=== PATIENT | female | born 1995 | race Caucasian/White ===

== ENCOUNTER 2021-04-21 04:15 | Observation (INO) | payer OTHER, MEDICAID, SELFPAY ==
[2021-04-21] VITALS (21 sets, daily range): BP systolic 104–137; BP diastolic 56–91; PULSE 60–101; RESP 16–20; TEMP 36–36.9; O2SAT 97–100; BMI 26.6
--- NOTE | 2021-04-21 | PATH_ITS ---
[facility] Accession Number: [id number] . 01 Material submitted: . appendix - APPENDIX . 02 Diagnosis: Appendix, Appendectomy: Acute appendicitis and serositis. [facility] 04/23/2021 1031 Local . 02 Electronically signed: . Kendal Perrin MD, Pathologist NPI- [id number] . 01 Gross description: . The specimen is received in formalin, labeled appendix and consists of an 8.0 cm in length by 1.6 cm in diameter vermiform appendix with attached meyer-yellow lobulated mesoappendix measuring 6.5 x 1.5 x 1.0 cm. The serosa is meyer-pink and ragged with adherent purulent exudate. Sectioning reveals a meyer-pink mucosa and a lumen measuring 1.4 cm in diameter. Rail[employer] Assistant sections are submitted to include the en face margin (blue), central cross sections and bisected tips in cassettes A1-A3. ([id number]) /V 04/22/2021 1122 Local . 02 Pathologist provided ICD-10: K35.80 . 02 CPT . 619850 Performed at: 01 [facility] [address], [place], [place] [id number] MD Ari Downs MD Phone: [phone] Performed at: 02 [facility] [address] [place], [place] [id number] MD Tonya Kenny MD Phone: [phone]
--- NOTE | 2021-04-21 04:23 | ED_ITS ---
HPI - Abdominal Pain General Chief Complaint: Abdominal Pain Stated Complaint: bad stomach pain hurts to lay down Time Seen by Provider: 04/21/21 04:20 Source: patient Mode of arrival: Ambulatory Limitations: no limitations History of Present Illness HPI narrative: This is a 25-year-old female who comes to the emergency department with complaint of abdominal pain. Patient states her lower abdomen. It came on fairly quickly about 11:00 a.m. this evening. Patient states just been worsening over time. She has not had any fevers or chills she is aware of. No diaphoresis. No chest pain or shortness breath. She has had some nausea and had 1 episode of vomiting. She denies any diarrhea or constipation, no b lack or bloody stools and states she has had normal formed stools. No dysuria, urgency or frequency. She denies any vaginal bleeding or discharge. She denies any other medical issues. No daily medications. No prior surgeries. No allergies other than citalopram. Tobacco, occasional alcohol, no illicit. Related Data Previous Rx's Medication Instructions Recorded cephalexin 500 mg capsule (Keflex) 500 mg PO TID 7 Days #0 cap 06/22/16 ciprofloxacin HCl 0.3 % eye drops 1 drp OPHTH Q2HWA #5 ml 01/20/17 (Ciloxan) Allergies Allergy/AdvReac Type Severity Reaction Status Date / Time citalopram [From CELEXA] Allergy Intermediate Rash Verified 04/21/21 16:33 Review of Systems Review of Systems ROS Unobtainable: All systems reviewed & are unremarkable except as noted in HPI and below Patient History Social History (System 07/03/19 @ 08:34 by Della Arciniega) household members: significant other Smoking Status: Never smoker alcohol intake: current Exam Narrative Exam Narrative: GENERAL: Alert and oriented x three, female in moderate distress . HEENT: Head normocephalic, atraumatic, EOMI, pupils reactive, face symmetric, moist mucous membranes NECK: Supple, full range of motion CARDIOVASCULAR: Regular rate and rhythm without murmurs, rubs or gallops. RESPIRATORY: Breath sounds equal bilaterally, no wheezes rales or rhonchi. ABDOMEN: Soft, patient's only uncomfortable on exam but no discrete abdominal tenderness on palpation. Hyperactive bowel sounds all 4 quadrants. No guarding or rebound, rigidity, no mass. Non-distended. : No CVA tenderness bilaterally. EXTREMITIES: Normal range of motion, no clubbing or edema. Neurovascularly intact NEUROLOGICAL: Cranial nerves II through XII grossly intact. Moving all extremities SKIN: Warm, dry, no petechiae, no rashes or lesions. Initial Vital Signs Initial Vital Signs: Vital Signs Temperature 97.5 F L 04/21/21 04:25 Pulse Rate 60 04/21/21 04:25 Respiratory Rate 16 04/21/21 04:25 Blood Pressure 131/79 04/21/21 04:25 Pulse Oximetry 100 04/21/21 04:25 Course Orders Ordered: Acetaminophen (Acetaminophen 325 Mg Tablet) 650 mg PO Q6HR PRN PRN Reason: Fever/Mild Pain (1-3) Enoxaparin Sodium (Enoxaparin 40 Mg/0.4 Ml Syringe) 40 mg SUBCUT DAILY [facility] Gabapentin (Gabapentin 300 Mg Capsule) 300 mg PO BID [facility] Last Admin: 04/21/21 20:56 Dose: 300 mg Documented by: JACIT Lactated Ringer's (Lactated Ringers) 1,000 mls @ 42 mls/hr IV CONT [facility] Last Infusion: 04/21/21 19:11 Dose: 0 mls/hr Documented by: [email or web address] Admin: 04/21/21 17:48 Dose: 42 mls/hr Documented by: Infusion: 04/21/21 17:48 Dose: 42 mls/hr Documented by: Admin: 04/21/21 16:43 Dose: 42 mls/hr Documented by: [email or web address] Ketorolac Tromethamine (Ketorolac 30 Mg/Ml Vial) 30 mg IV Q6HR PRN PRN Reason: Pain, Moderate (4-6) Stop: 04/26/21 19:12 Last Admin: 04/21/21 22:38 Dose: 30 mg Documented by: [email or web address] Naloxone HCl (Naloxone 0.4 Mg/Ml Vial) 0.2 mg IV Q2MIN PRN PRN Reason: Opiate Reversal Ondansetron HCl (Ondansetron 4 Mg/2 Ml Inj) 4 mg IV Q4HR PRN PRN Reason: Nausea And Vomiting Oxycodone/Acetaminophen (Oxycodone/Acetaminophen 5/325 Tablet) 2 tab PO Q6HR PRN PRN Reason: Pain, Severe (7-10) Last Admin: 04/21/21 22:38 Dose: 2 tab Documented by: HORTENCIA Discontinued Medications Bupivacaine HCl (Bupivacaine 0.5% (Pf) Vial) 30 ml INJ NOW ONE Stop: 04/21/21 17:43 Last Admin: 04/21/21 17:42 Dose: 12 ml Documented by: SARAHY Fentanyl (Fentanyl 100 Mcg/2 Ml Inj) 0 mcg IV Q5M PRN PRN Reason: Pain, Moderate (4-6) Fentanyl (Fentanyl 100 Mcg/2 Ml Inj) 50 mcg IV NOW ONE Stop: 04/21/21 16:36 Last Admin: 04/21/21 16:41 Dose: 50 mcg Documented by: [email or web address] Hydromorphone HCl (Hydromorphone 1 Mg Inj) 1 mg IV NOW ONE Stop: 04/21/21 11:02 Last Admin: 04/21/21 11:17 Dose: 1 mg Documented by: NASRIN Hydromorphone HCl (Hydromorphone 2 Mg Inj) 0 mg IV Q5M PRN PRN Reason: Pain, Moderate (4-6) Sodium Chloride (Normal Saline 0.9%) 1,000 mls @ 1,000 mls/hr IV BOLUS ONE Stop: 04/21/21 05:28 Last Infusion: 04/21/21 07:16 Dose: 0 mls/hr Documented by: Admin: 04/21/21 04:35 Dose: 1,000 mls/hr Documented by: ANASTASIA Piperacillin Sod/Tazobactam (Sod 4.5 gm/ Sodium Chloride) 100 mls @ 200 mls/hr IV NOW ONE Stop: 04/21/21 06:01 Last Infusion: 04/21/21 07:16 Dose: 0 mls/hr Documented by: Admin: 04/21/21 06:29 Dose: 200 mls/hr Documented by: STEFF Sodium Chloride (Normal Saline 0.9%) 1,000 mls @ 125 mls/hr IV CONT BREONNA Last Infusion: 04/21/21 19:29 Dose: 0 mls/hr Documented by: Admin: 04/21/21 08:56 Dose: 125 mls/hr Documented by: NASRIN Piperacillin Sod/Tazobactam (Sod 3.375 gm/ Sodium Chloride) 100 mls @ 25 mls/hr IV Q8H BREONNA Last Admin: 04/21/21 19:30 Dose: Not Given Documented by: Infusion: 04/21/21 15:51 Dose: 0 mls/hr Documented by: Admin: 04/21/21 10:06 Dose: 25 mls/hr Documented by: NASRIN Cefotetan Disodium 2 gm/ (Sodium Chloride) 100 mls @ 200 mls/hr IV NOW ONE Stop: 04/21/21 17:44 Last Infusion: 04/21/21 17:26 Dose: 0 mls/hr Documented by: Admin: 04/21/21 17:21 Dose: 200 mls/hr Documented by: MELISSA Metronidazole (Flagyl) 500 mg in 100 mls @ 100 mls/hr IV NOW ONE Stop: 04/21/21 19:17 Last Infusion: 04/21/21 18:23 Dose: 0 mls/hr Documented by: Admin: 04/21/21 18:18 Dose: 100 mls/hr Documented by: MELISSA Ketorolac Tromethamine (Ketorolac 30 Mg/Ml Vial) 30 mg IV NOW ONE Stop: 04/21/21 04:30 Last Admin: 04/21/21 05:01 Dose: 30 mg Documented by: ANASTASIA Morphine Sulfate (Morphine 4 Mg/Ml Inj) 4 mg IV NOW ONE Stop: 04/21/21 05:12 Last Admin: 04/21/21 05:17 Dose: 4 mg Documented by: ANASTASIA Morphine Sulfate (Morphine 4 Mg/Ml Inj) 4 mg IV NOW ONE Stop: 04/21/21 07:31 Last Admin: 04/21/21 07:37 Dose: 4 mg Documented by: MOY Morphine Sulfate (Morphine 2 Mg/Ml Inj) 4 mg IV Q4HR PRN PRN Reason: Pain, Severe (7-10) Last Admin: 04/21/21 09:01 Dose: 4 mg Documented by: NASRIN Morphine Sulfate (Morphine 2 Mg/Ml Inj) 2 mg IV Q4HR PRN PRN Reason: Pain, Moderate (4-6) Morphine Sulfate (Morphine 4 Mg/Ml Inj) 4 mg IV Q4HR PRN PRN Reason: Pain, Severe (7-10) Last Admin: 04/21/21 13:00 Dose: 4 mg Documented by: NASRIN Naloxone HCl (Naloxone 0.4 Mg/Ml Vial) 0.2 mg IV Q2MIN PRN PRN Reason: Opiate Reversal Ondansetron HCl (Ondansetron 4 Mg/2 Ml Inj) 4 mg IV NOW ONE Stop: 04/21/21 04:30 Last Admin: 04/21/21 04:35 Dose: 4 mg Documented by: ANASTASIA Ondansetron HCl (Ondansetron 4 Mg/2 Ml Inj) 4 mg IV Q4HR PRN PRN Reason: Nausea And Vomiting Ondansetron HCl (Ondansetron 4 Mg/2 Ml Inj) 4 mg IV Q8HR PRN PRN Reason: Nausea And Vomiting Last Admin: 04/21/21 16:48 Dose: 4 mg Documented by: [email or web address] Ondansetron HCl (Ondansetron 4 Mg/2 Ml Inj) 4 mg IV NOW PRN PRN Reason: Nausea And Vomiting Oxycodone HCl (Oxycodone Ir 5 Mg Tablet) 5 mg PO Q6HR PRN PRN Reason: Pain, Moderate (4-6) Reevaluation(s) Reevaluation #1: Patient is much more comfortable after pain medications. Reviewed labs and CT findings patient is positive for acute appendicitis. She h ad water about 1/2 hour prior to arrival has not had any food since 19:30. Consultations Consultation #1: Dr. Calix, accepts will await covid swab and figure out OR time. Vital Signs Vital signs: Vital Signs - 8 hr 04/21/21 04:25 Temperature 97.5 F L Pulse Rate 60 Respiratory Rate 16 Blood Pressure 131/79 Pulse Oximetry 100 MDM - Abdominal Pain Lab Data Result diagrams: 04/21/21 04:30 04/21/21 04:30 Labs: Lab Results 04/21/21 04/21/21 04/21/21 Range/Units 04:30 04:30 06:30 WBC 10.5 (4.5-11.0) X10^3/uL RBC 4.77 (4.0-5.2) X10^6/uL Hgb 14.7 (12.0-16.0) g/dL Hct 44.6 (36-46) % MCV 93.4 (80-100) fL MCH 30.9 (26-34) PG MCHC 33.1 (30-36) % RDW 13.4 (11.6-14.8) % Plt Count 197 (150-400) X10^3/uL Neut % (Auto) 82.7 H (50-75) % Lymph % (Auto) 11.6 L (25-40) % White % (Auto) 4.8 (3-14) % Eos % (Auto) 0.4 L (2-4) % Baso % (Auto) 0.5 (0-2) % Neut # (Auto) 8600 H (8276-9578) /uL Lymph # (Auto) 1200 (1454-2511) /uL White # (Auto) 500 (0-900) /uL Eos # (Auto) 0 (0-450) /uL Baso # (Auto) 100 (0-100) /uL Sodium 138 (137-145) mmol/L Potassium 3.8 (3.4-5.1) mmol/L Chloride 104 (98-107) mmol/L Carbon Dioxide 26 (22-32) mmol/L BUN 7 (7-17) mg/dL Creatinine 0.59 (0.52-1.04) mg/dL Estimated GFR > 60.0 (>60) mL/min BUN/Creatinine Ratio 11.9 (6-22) Glucose 118 H (70-100) mg/dL Calcium 9.2 (8.4-10.2) mg/dL Total Bilirubin 0.4 (0.2-1.3) mg/dL AST 33 (14-36) IU/L ALT 33 (<35) IU/L Alkaline Phosphatase 59 (38-126) U/L Total Protein 7.7 (6.3-8.2) g/dL Albumin 4.7 (3.5-5.0) g/dL Globulin 3.0 (1.7-4.1) g/dL Albumin/Globulin Ratio 1.6 (1.0-2.8) Lipase 107 (23-300) U/L SARS-CoV-2 (PCR) Negative (Negative) Point of care testing: Point of Care Testing Test Results Negative Urine Dip Bedside Urine Glucose Negative Bedside Urine Bilirubin - Negative Bedside Urine Ketone + 15 Urine Specific [place] 1.030 Bedside Urine Occult Blood - Negative Bedside Urine pH 6.0 Bedside Urine Protein - Negative Bedside Urine Urobilinogen - Negative Bedside Urine Nitrite - Negative Bedside Urine Leukocytes - Negative Esterase Imaging Data CT scan - abdomen/pelvis: Radiologist's Impression: Appendix is dilated up to 15 mm. Appendicular LEs are noted throughout the appendix. There was a small amount of periappendiceal inflammation. There is a collapsing 1.9 cm left adnexal regional cyst. No free fluid. No perforation or abscess appreciated. MDM Narrative Medical decision making narrative: This is a 25-year-old female comes in with fairly acute onset of lower abdominal pain unable to elicit exact location of pain on palpation but she is quite uncomfortable with normal labs and urine. After 2 rounds of pain medication she has improved. CT abdomen and pelvis was obtained and patient is positive for acute appendicitis. IV antibiotics were in itiated. General surgery was contacted. COVID swab was obtained and is pending. Discharge Plan Departure Patient Disposition: Admitted As Inpatient Clinical Impression: Appendicitis Admit Date/Time: 04/21/21 07:45 Admit Provider: Johnnie Calix
[2021-04-21] MEDS: SODIUM CHLORIDE 0.9% 1,000 ML 1000 ML IV (04:35)
[2021-04-21] MEDS: ONDANSETRON 4 MG/2 ML INJ IV ×2 (04:35→16:48)
[2021-04-21 04:43] LABS: Add Manual Diff / Slide Review NO; Basophils Absolute Auto 100 /uL (0-100); Basophils Percent Auto 0.5 % (0-2); Eosinophils Absolute Auto 0 /uL (0-450); Eosinophils Percent Auto 0.4 % (2-4); Hematocrit 44.6 % (36-46); Hemoglobin 14.7 g/dL (12.0-16.0); Lymphocytes Absolute Auto 1200 /uL (1100-4500); Lymphocytes Percent Auto 11.6 % (25-40); Mean Corpuscular HGB Conc 33.1 % (30-36); Mean Corpuscular Hemoglobin 30.9 PG (26-34); Mean Corpuscular Volume 93.4 fL (80-100); Monocytes Absolute Auto 500 /uL (0-900); Monocytes Percent Auto 4.8 % (3-14); Neutrophils Absolute Auto 8600 /uL (1500-7000); Neutrophils Percent Auto 82.7 % (50-75); Platelet Count 197 X10^3/uL (150-400); Red Blood Cell Count 4.77 X10^6/uL (4.0-5.2); Red Cell Distribution Width 13.4 % (11.6-14.8); White Blood Cell Count 10.5 X10^3/uL (4.5-11.0)
[2021-04-21 04:58] LABS: Alanine Aminotransferase 33 IU/L (<35); Albumin 4.7 g/dL (3.5-5.0); Albumin Globulin Ratio 1.6 (1.0-2.8); Alkaline Phosphatase 59 U/L (38-126); Aspartate Aminotransferase 33 IU/L (14-36); BUN Creatinine Ratio 11.9 (6-22); Bilirubin Total 0.4 mg/dL (0.2-1.3); Blood Urea Nitrogen 7 mg/dL (7-17); Calcium 9.2 mg/dL (8.4-10.2); Carbon Dioxide 26 mmol/L (22-32); Chloride 104 mmol/L (98-107); Estimated Glomerular Filt Rate > 60.0 mL/min (>60); Glucose 118 mg/dL (70-100); HEMOLYSIS < 15 (0-50); Lipase 107 U/L (23-300); Potassium 3.8 mmol/L (3.4-5.1); Sodium 138 mmol/L (137-145); Total Protein 7.7 g/dL (6.3-8.2)
[2021-04-21] MEDS: KETOROLAC 30 MG/ML VIAL IV ×2 (05:01→22:38)
--- NOTE | 2021-04-21 05:09 | DI.CT.S_ITS ---
/PROCEDURE: CT ABDOMEN PELVIS W CON INDICATIONS: lower abdominal pain, nausea, vomiting TECHNIQUE: After the administration of oral and IV contrast, axial sections were acquired from the lung bases to the pubic symphysis. Coronal and sagittal reformats were performed. For radiation dose reduction, the following was used: automated exposure control, adjustment of mA and/or kV according to patient size. COMPARISON: None. FINDINGS: Image quality: Excellent. Lung bases: Unremarkable. Heart: Heart size at the upper limits of normal. ABDOMEN: Liver: Unremarkable. Gallbladder: Unremarkable. Biliary ducts: Unremarkable. Pancreas: Unremarkable. Spleen: Unremarkable. Adrenal Glands: Unremarkable. Kidneys and Ureters: Unremarkable. Stomach and Bowel: Stomach, small bowel loops, and colon are normal in caliber and wall thickness. The appendix is distended with fluid and gas and demonstrates wall thickening. This measures up to 1.6 cm in diameter. There is associated periappendiceal fat stranding. There are abductor lobes within the appendiceal lumen measuring up to 1.1 cm at the base of the appendix. Findings are consistent with acute appendicitis. There is colonic diverticulosis without acute diverticulitis. Peritoneum: There is a small amount of free fluid in the right lower quadrant and pelvis. No free air. No abscess collections. Ventral Wall: No hernia. Abdominal Nodes: No retroperitoneal or mesenteric adenopathy by size criteria. Vessels: Aorta and inferior vena cava are normal in size. PELVIS: Pelvic Organs: There is a small crenulated peripherally enhancing cyst in the left ovary compatible with a physiologic cyst. Bladder: Unremarkable. Pelvic Nodes: No enlarged lymph nodes. Miscellaneous: No inguinal hernias are seen. Bones: Unremarkable. IMPRESSION: 1. Findings consistent with acute appendicitis. Trace free fluid in the right lower quadrant is nonspecific and likely reactive. Early perforation cannot be fully excluded but is considered less likely given the minimal free fluid as well as absence of free air or abscess collection. Small amount of free fluid in the pelvis appears within physiologic limits. 2. Colonic diverticulosis without acute diverticulitis. Concordant with preliminary interpretation. Dictated by: Ari Sal M.D. on 04/21/2021 at 9:07 Approved by: Ari Sal M.D. on 04/21/2021 at 9:13
[2021-04-21] MEDS: MORPHINE 4 MG/ML INJ IV ×3 (05:17→13:00)
[2021-04-21] MEDS: PIPERACILLIN/TAZO 4.5 GM in SODIUM CHLORIDE 0.9% 100 ML 200 ML IV (06:29)
--- NOTE | 2021-04-21 07:30 | PC.NURSE ---
Patient reports increase in abd pain, requesting additional pain medication. Verbal order obtained from Dr Robison for additional 4mg IV Morphine
[2021-04-21 07:35] LABS: COVID19 - ADMIT (NP swab/PCR) Negative (Negative)
--- NOTE | 2021-04-21 08:26 | PC.NURSE ---
Day shift: Pt on unit from ED at approx 0820. She is A&Ox4. Pain controlled at this time. Steady on feet and independent in room at this time. Pt's S.O. in room for support. VS WNL. RA 98%. Denies any nausea. She will remain NPO. Procedure planned for 1644 today w/ Dr Laboy. Oriented to room and call light.
[2021-04-21] MEDS: SODIUM CHLORIDE 0.9% 1,000 ML 125 ML IV (08:56)
--- NOTE | 2021-04-21 08:58 | P.HP_ITS ---
History of Present Illness History of Present Illness Date Patient Seen: 04/21/21 Time Patient Seen: 08:58 Chief complaint: bad stomach pain hurts to lay down Narrative: 25-year-old healthy female presented to the emergency room last night for evaluation of abdominal pain. Describes a generalized abdominal pain across her lower abdomen with associated nausea and emesis. At arrival afebrile vital signs within normal limits WBC 11. CT abdomen pelvis demonstrates dilated appendix with fat stranding no free air or abscess. Received Zosyn. No previous abdominal surgery. Had wisdom teeth extraction no issues with bleeding or sedation. Patient History Family & Social History Safety & Behavioral: Feels Safe in Current Yes Environment Tobacco & Substance use: Smoking Status Never smoker alcohol intake frequency 0-2 drinks per day Substance Use Type does not use Meds Home Medications and Allergies Home Medications Medication Instructions Recorded Confirmed Type cephalexin 500 mg capsule (Keflex) 500 mg PO TID 7 Days #0 cap 06/22/16 Rx ciprofloxacin HCl 0.3 % eye drops 1 drp OPHTH Q2HWA #5 ml 01/20/17 Rx (Ciloxan) Allergies Allergy/AdvReac Type Severity Reaction Status Date / Time citalopram [From CELEXA] Allergy Intermediate Verified 04/21/21 05:32 Exam Vital Signs (past 8 hours): - 04/21/21 04:25 04/21/21 06:36 Temperature 97.5 F L Pulse Rate 60 61 Respiratory Rate 16 16 Blood Pressure 131/79 107/62 Pulse Oximetry 100 100 Oxygen Delivery Method Room Air Narrative Exam Narrative: Constitutional-She is oriented to person, place and time. No apparent distress Cardiovascular- regular rate, no peripheral edema Pulmonary-unlabored respiratory effort, no audible wheezing Abdominal-tender right lower quadrant no peritonitis Musculoskeletal-no cyanosis or clubbing Neurological-nonfocal, normal strength throughout Skin-warm and dry Objective Labs Result Diagrams: 04/21/21 04:30 04/21/21 04:30 Labs: Laboratory Results - last 24 hr 04/21/21 04/21/21 04/21/21 04:30 04:30 06:30 WBC 10.5 RBC 4.77 Hgb 14.7 Hct 44.6 MCV 93.4 MCH 30.9 MCHC 33.1 RDW 13.4 Plt Count 197 Neut % (Auto) 82.7 H Lymph % (Auto) 11.6 L [place] % (Auto) 4.8 Eos % (Auto) 0.4 L Baso % (Auto) 0.5 Neut # (Auto) 8600 H Lymph # (Auto) 1200 [place] # (Auto) 500 Eos # (Auto) 0 Baso # (Auto) 100 Sodium 138 Potassium 3.8 Chloride 104 Carbon Dioxide 26 BUN 7 Creatinine 0.59 Estimated GFR > 60.0 BUN/Creatinine Ratio 11.9 Glucose 118 H Calcium 9.2 Total Bilirubin 0.4 AST 33 ALT 33 Alkaline Phosphatase 59 Total Protein 7.7 Albumin 4.7 Globulin 3.0 Albumin/Globulin Ratio 1.6 Lipase 107 SARS-CoV-2 (PCR) Negative Assessment & Plan Assessment and plan (1) Appendicitis: Status: Acute Assessment & Plan narrative: 25-year-old healthy female with acute appendicitis. Personally reviewed her CT abdomen pelvis which demonstrates a dilated appendix within fat stranding no abscess. I discussed with her management options including non operative therapy with antibiotics and appendectomy. Following discussion she wants to proceed with laparoscopic appendectomy. Technical details of the procedure were discussed with her. Procedural risks including perioperative complications, bleeding, infection, damage to surrounding structures and staple line leak were discussed. Her questions have been answered she is in agreement with this plan. I told her that it will likely be Dr. Johnson performing her operation. -NPO IV fluids -Zosyn Time Spent With Patient Critical Care time: I spent a total of [] minutes of critical care time on this patient's care today; this time is exclusive of procedural time.
[2021-04-21] MEDS: MORPHINE 2 MG/ML INJ 4 MG IV (09:01)
[2021-04-21] MEDS: PIPERACILLIN/TAZO 3.375 GM in SODIUM CHLORIDE 0.9% 100 ML 25 ML IV (10:06)
[2021-04-21] MEDS: HYDROMORPHONE 1 MG INJ IV (11:17)
--- NOTE | 2021-04-21 13:34 | PC.NURSE ---
Day shift: Instructed on I.S. use. Pt did not use at this time because her ABD pain was too high. She did state that she would use it after surgery and later today as instructed.
[2021-04-21] MEDS: fentaNYL 100 MCG/2 ML INJ 50 MCG IV (16:41)
[2021-04-21] MEDS: LACTATED RINGERS 1,000 ML 42 ML IV ×2 (16:43→17:48)
--- NOTE | 2021-04-21 16:53 | SUR.HOLD ---
Pt was given Fentanyl 50 mcg IV with pain 8/10, pt got nauseated and medicated with zofran. Re-evaluated 5 minutes after medicated and pt states pain 4/10 and nausea resolved. Pt states pain is tolerable.
--- NOTE | 2021-04-21 17:08 | SUR.HOLD ---
Hand off to CARLEE Veras pt cond stable O2 sat 98 and heart rate 105
--- NOTE | 2021-04-21 17:13 | PM.PREOP ---
Pre-operative Note COVID-19 COVID-19 status: Negative Result date/Date tested (Pos, Neg/Pending): 04/21/21 Interval Note History & Physical reviewed/Exam performed by Physician: Yes Changes to H&P: Yes H&P completed within 30 days and has changed as indicated here:: Discussed risks of bleeding infection and hernia with her. The alternative diagnoses that might occur were also discussed and the potential for an open procedure discussed. She appears to understand wishes to proceed.
[2021-04-21] MEDS: CEFOTETAN 2 GM in SODIUM CHLORIDE 0.9% 100 ML 200 ML IV (17:21)
--- NOTE | 2021-04-21 17:35 | SUR.OPER ---
Supine on padded OR bed, head on pillow, left arm padded and tucked at sides, right arm secured to padded arm board <90 degrees abduction,legs uncrossed, safety belt at thigh, tape over blanket over lower legs .
[2021-04-21] MEDS: BUPIVACAINE 0.5% (PF) VIAL 30 ML INJ (17:42)
[2021-04-21] MEDS: metroNIDAZOLE 500 MG/100 ML PIGGYBACK 100 MG IV (18:18)
--- NOTE | 2021-04-21 19:04 | P.OP_ITS ---
Operative Date/Time/Diagnoses Date of procedure: 04/21/21 Time of procedure: 19:04 Pre-op diagnosis: Acute appendicitis Post-op diagnosis: same Procedure & Clinicians Procedure: Laparoscopic appendectomy Same procedure as scheduled: Yes Indications: Signs and symptoms and CT scan suggestive of acute appendicitis Surgeon: Edy Johnson Click Yes if Unassisted: Yes Anesthesia Type: General Operative Notes Findings: Acute appendicitis. Base of the appendix healthy. Closure Type: primary Specimen(s): other (Appendix with appendicoliths) Prosthetic devices, grafts, tissues, transplants, or devices: None Estimated Blood Loss (mL): 5 Blood products transfused: none Procedure in detail: The patient was placed supine on the operating room table and underwent general endotracheal anesthesia. The patient was prepped and draped in the usual fashion. Local anesthetic was infiltrated and an incision made beneath the umbilicus. It was carried down under direct vision through the fascia into the peritoneal cavity. Stay sutures of 0 Vicryl were placed in the fascia. A 12 mm port was inserted and 2 additional ports were placed. These were 5 mm ports. One was placed between the umbilicus and pubis and 1 in the left lower quadrant. The cecum and terminal ileum were identified. Based on the CT scan the appendix was expected to be a retrocecal and indeed it was. I dissected using the LigaSure or along the attachments of the appendix to the right abdominal wall. I then divided the attachments to the appendix between the right colon and cecum and the appendix. The appendix was elevated and the mesoappendix divided as well. Once completely freed in the base examined it appeared healthy. An 0 PDS loop was placed at the base of the appendix and cinched down. The appendix was occluded with a clamp distal to this and the appendix transected between the tie and the clamp using the Harmonic scalpel The appendix was immediately placed in a bag. The right gutter and pelvis were copiously irrigated and suctioned free of fluid. There was no ongoing bleeding. The ports were all removed. The stay sutures at the umbilicus were tied. An additional 2 0 PDS was placed between the knees. The ports were all removed. wounds were all irrigated and 4 0 Vicryl subcuticular interrupted sutures were used to close the skin. Mastisol and Steri-Strips along with Band- Aids are placed over the wounds. Patient tolerated the procedure well. Patient was given a long-acting 2nd generation cephalosporin immediately before the operation as it had been almost 4 hours since the last dose of antibiotics. Because of the amount of inflammation in the choice of a second-generation cephalosporin patient was also given Flagyl 500 mg IV intraoperatively since 2nd generation cephalosporin has developed limited reactivity to some anaerobes. Complications: none Post-operative Condition: stable Disposition: PACU Plan for aftercare: Observed overnight
[2021-04-21] MEDS: GABAPENTIN 300 MG CAPSULE PO (20:56)
[2021-04-21] MEDS: OXYCODONE/ACETAMINOPHEN 5/325 TABLET 2 TAB PO (22:38)
[2021-04-22 00:20] VITALS: BP 104/56; PULSE 90; RESP 16; TEMP 37; O2SAT 98
[2021-04-22 05:43] VITALS: BP 99/53; PULSE 80; RESP 16; TEMP 36.8; O2SAT 98
[2021-04-22 06:03] LABS: Add Manual Diff / Slide Review NO; Basophils Absolute Auto 0 /uL (0-100); Basophils Percent Auto 0.2 % (0-2); Eosinophils Absolute Auto 100 /uL (0-450); Eosinophils Percent Auto 0.5 % (2-4); Hematocrit 37.7 % (36-46); Hemoglobin 12.4 g/dL (12.0-16.0); Lymphocytes Absolute Auto 600 /uL (1100-4500); Lymphocytes Percent Auto 5.2 % (25-40); Mean Corpuscular HGB Conc 32.9 % (30-36); Mean Corpuscular Hemoglobin 30.9 PG (26-34); Mean Corpuscular Volume 94.1 fL (80-100); Monocytes Absolute Auto 800 /uL (0-900); Monocytes Percent Auto 6.5 % (3-14); Neutrophils Absolute Auto 10100 /uL (1500-7000); Neutrophils Percent Auto 87.6 % (50-75); Platelet Count 160 X10^3/uL (150-400); Red Blood Cell Count 4.01 X10^6/uL (4.0-5.2); Red Cell Distribution Width 13.2 % (11.6-14.8); White Blood Cell Count 11.5 X10^3/uL (4.5-11.0)
--- NOTE | 2021-04-22 08:28 | PM.DS.1 ---
History of Present Illness History of Present Illness Chief complaint: bad stomach pain hurts to lay down Narrative: Patient is a woman who was admitted with lower abdominal pain and elevated white blood cell count, and CT consistent with acute appendicitis. Discharge Providers Provider Date of admission: 04/21/21 07:45 Discharge Date: 04/22/21 Consults: 04/21/21 19:18 Consult to Discharge Planning Routine Comment: Discharge provider: Edy Johnson MD Summary Hospital Course Discharge Diagnosis: Acute appendicitis Hospital Course: Patient was taken the operating room and underwent a laparoscopic appendectomy. She did not appear to be perforated. The patient felt much better postoperatively. Pain was markedly decreased and she had no nausea. She was discharged to follow-up in the office. Status at Discharge Cognitive/behavioral status at discharge: oriented Functional status at discharge: independent ambulation Overall status at discharge: patient is progressing back to baseline Exam Vital Signs (past 8 hours): - 04/22/21 05:43 Temperature 98.2 F Pulse Rate 80 Respiratory Rate 16 Blood Pressure 99/53 L Pulse Oximetry 98 Oxygen Delivery Method Room Air Oxygen Flow Rate 0 Narrative Exam Narrative: Dressings dry and intact. Abdomen is scaphoid. Objective Labs Result Diagrams: 04/22/21 05:53 04/21/21 04:30 Labs: Laboratory Results - last 24 hr 04/22/21 05:53 WBC 11.5 H RBC 4.01 Hgb 12.4 Hct 37.7 MCV 94.1 MCH 30.9 MCHC 32.9 RDW 13.2 Plt Count 160 Neut % (Auto) 87.6 H Lymph % (Auto) 5.2 L [place] % (Auto) 6.5 Eos % (Auto) 0.5 L Baso % (Auto) 0.2 Neut # (Auto) 90718 H Lymph # (Auto) 600 L [place] # (Auto) 800 Eos # (Auto) 100 Baso # (Auto) 0 PFSH Social History household members: significant other Smoking Status: Never smoker alcohol intake: current Discharge Plan Discharge Plan Patient Disposition: Home Provider Discharge Comment: You had acute appendicitis. Your appendix did not appear to be perforated. Discharge orders & Medications Prescriptions: New oxycodone-acetaminophen [Percocet] 5-325 mg tablet See Rx Instructions .ROUTE .COMPLEX PRN (Reason: painful procedure) Qty: 14 RF: 0 naproxen [Naprosyn] 500 mg tablet 500 mg PO BID PRN (Reason: painful procedure) Qty: 14 RF: 0 oxycodone-acetaminophen [Percocet] 5-325 mg tablet See Rx Instructions .ROUTE .COMPLEX PRN (Reason: painful procedure) Qty: 14 RF: 0 Discontinued cephalexin [Keflex] 500 MG capsule 500 mg PO TID 7 Days Qty: 0 RF: 0 ciprofloxacin HCl [Ciloxan] 0.3 % drops 1 drp OPHTH Q2HWA Qty: 5 RF: 0 Diet/Activity/Treatments Diet: Diet as Tolerated Activity: Do not drive into pain-free off medication. You may walk. Do not lift over 10 lb or strain for the next 4 weeks. Due to the amount of movement straining avoid sex for 4 weeks as well. Skin/Wound/Dressing Care Report to your healthcare provider any signs of infection, such as:: chills, fever, night sweats, increased pain, unusual drainage and unusual redness Dressing: You may remove the Band-Aids tomorrow and shower. Leave the pieces of tape under the Band-Aids fall off on their own. Quality VTE Deep Vein Thrombosis/Pulmonary Embolism Present on Admission: No
[2021-04-22 08:29] VITALS: BP 93/62; PULSE 62; RESP 16; TEMP 36.2; O2SAT 97
[2021-04-22 08:40] VITALS: O2SAT 97
[2021-04-22] MEDS: OXYCODONE/ACETAMINOPHEN 5/325 TABLET 2 TAB PO (09:06)
[2021-04-22] MEDS: GABAPENTIN 300 MG CAPSULE PO (09:07)
--- NOTE | 2021-04-22 10:58 | PC.NURSE ---
Pt is dressed and ready for discharge home with S.O. IV has been removed. Went over d/c instructions with Pt-discussed d/c meds, time of last dose, reviewed stroke education, s/s of infection, showering, not lifting greater than 10 pounds for 4 weeks, no driving while having pain, or being on narcotics, and follow up. Pt encouraged to drink plenty of fluids to prevent constipation or dehydration. Pt out via w/c by [facility] to POV with S.O. and all belongings.
== END 2021-04-22 11:02 | disposition home or self-care (01) ==
LOC: ED 07:45 → AC 07:50
PROVIDERS: Emergency Medicine; Specialist; Admitting Provider Surgery; Emergency Provider Emergency Medicine; Referring Provider Emergency Medicine; Visit Provider Surgery
PROC: 0DTJ4ZZ Resection of Appendix, Percutaneous Endoscopic Approach (ICD-10-PCS; CPT 44970; principal; 2021-04-21 16:45)
DX: K35.80 Unspecified acute appendicitis (principal); Z20.822 Contact with and (suspected) exposure to COVID-19
CPT/HCPCS: 44970; 36415; 74177; 80053; 81003; 81025; 83690; 85025; 87635; 94760; 96361; 96365; 96375; 96376; 99219; 99284; C9803; G0378; J0330; J1100; J1170; J1885; J2270; J2405; J2543; J2704; J3010; Q9967

== ENCOUNTER 2024-05-22 13:41 | Emergency (ER) | payer OTHER, MEDICAID, SELFPAY ==
[2021-04-21 10:17] VITALS: BMI 26.6
[2024-05-22] VITALS (7 sets, daily range): BP systolic 106–141; BP diastolic 59–78; PULSE 59–75; RESP 16–20; TEMP 36.8–36.9; O2SAT 98–100; BMI 28.3
--- NOTE | 2024-05-22 13:56 | DI.RAD.S_ITS ---
PROCEDURE: XR CHEST 1V INDICATIONS: chest pain TECHNIQUE: One view of the chest was acquired. COMPARISON: None. FINDINGS: Surgical changes and devices: None. Lungs and pleura: Lungs are clear. No pleural effusions or pneumothorax. Mediastinum: Mediastinal contours appear normal. Heart size is normal. Bones and chest wall: No suspicious bony lesions. Overlying soft tissues appear unremarkable. IMPRESSION: No acute cardiopulmonary abnormality is seen. Dictated by: Romero Snow M.D. on 05/22/2024 at 14:24 Approved by: Romero Snow M.D. on 05/22/2024 at 14:24
--- NOTE | 2024-05-22 14:10 | EKG_ITS ---
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
[2024-05-22 14:24] LABS: Add Manual Diff / Slide Review NO; Basophils Absolute Auto 100 /uL (0-100); Basophils Percent Auto 1.1 % (0-2); Eosinophils Absolute Auto 0 /uL (0-450); Eosinophils Percent Auto 0.3 % (2-4); Hematocrit 42.5 % (36-46); Hemoglobin 14.2 g/dL (12.0-16.0); Lymphocytes Absolute Auto 1400 /uL (1100-4500); Lymphocytes Percent Auto 20.7 % (25-40); Mean Corpuscular HGB Conc 33.4 % (30-36); Mean Corpuscular Volume 92.9 fL (80-100); Monocytes Absolute Auto 400 /uL (0-900); Monocytes Percent Auto 5.2 % (3-14); Neutrophils Absolute Auto 5000 /uL (1500-7000); Neutrophils Percent Auto 72.7 % (50-75); Platelet Count 199 X10^3/uL (150-400); Red Blood Cell Count 4.58 X10^6/uL (4.0-5.2); Red Cell Distribution Width 12.7 % (11.6-14.8); White Blood Cell Count 6.9 X10^3/uL (4.5-11.0)
--- NOTE | 2024-05-22 14:24 | PC.NURSE ---
Patient had unconsiouss episode last night at dinner time. Witnessed by spouse, no fall, laid down on couch. Patient reports kalidescope black and white vision prior to episode. Woke up alert after one minute, reporting sweating and like my heart felt weird. headache in evening, reports feeling well today with no current symptoms.
[2024-05-22 14:30] LABS: INR 1.1 (0.9-1.3)
[2024-05-22 14:33] LABS: PTT Partial Thromboplastin Tim 33 SECONDS (25.1-36.5)
[2024-05-22 14:35] LABS: Alanine Aminotransferase 18 IU/L (<35); Albumin 4.8 g/dL (3.5-5.0); Albumin Globulin Ratio 1.6 (1.0-2.8); Alkaline Phosphatase 50 U/L (38-126); Aspartate Aminotransferase 22 IU/L (14-36); BUN Creatinine Ratio 12.2 (6-22); Bilirubin Total 0.6 mg/dL (0.2-1.3); Blood Urea Nitrogen 9 mg/dL (7-17); Carbon Dioxide 22 mmol/L (22-32); Chloride 106 mmol/L (98-107); Creatine Kinase 50 U/L (30-135); Estimated Glomerular Filt Rate > 60 mL/min (>60); Glucose 91 mg/dL (70-100); HEMOLYSIS < 15 (0-50); Lipase 110 U/L (23-300); Magnesium 1.8 mg/dL (1.6-2.3); Potassium 3.4 mmol/L (3.4-5.1); Sodium 138 mmol/L (137-145); Total Protein 7.8 g/dL (6.3-8.2)
[2024-05-22 14:47] LABS: NT-proBNP (BNP-Adult 18+) 216 pg/mL (<125); Troponin I < 0.012 ng/mL (0.01-0.034)
--- NOTE | 2024-05-22 14:52 | ED.SYNCOPE ---
HPI - Syncope General Chief Complaint: Syncope Stated Complaint: sent by PCP, for fainting r/u seizure Time Seen by Provider: 05/22/24 14:11 Source: patient, family, RN notes reviewed and old records reviewed Mode of arrival: Ambulatory Limitations: no limitations History of Present Illness HPI narrative: 28-year-old female who presents with complaint of possible syncopal episode last night. Patient states she was standing has been making dinner was playing at when she saw a black and white spots, she thought she was going to pass out sat down on the floor felt nauseated and then sort of woke up about a minute later. Her fiance was with her he states he saw saw her sit down sort of fall off to her side. He states she was slightly twitchy but not shaking all over, she got sweaty and was awake alert and conversant within about a minute with no confusion afterwards. Patient states she was very sweaty. States she felt a little bit of chest discomfort and shortness of breath right at that time and that her heart felt sort of your regular for about a few more minutes and then that resolved. Patient states no swelling in extremities. No fevers or chills. No persistent chest pain or shortness of breath since. No nausea or vomiting since. Normal bowel movements. No incontinence no cuts on her mouth or tongue. Have syncopal episode as a child but not since. States she was on Wellbutrin no other daily medications. No estrogen. Has a history of appendectomy. Reported allergy to Celexa. No tobacco, has 1 alcoholic drink weekly. No tobacco alcohol yesterday. No recreational drugs other than occasional THC edibles. We will contact her primary care physician today to follow-up but has not appointment on June 07 but was told to come to the ED. states she has felt normal since then. Related Data Previous Rx's Medication Instructions Recorded naproxen 500 mg tablet (Naprosyn) 500 mg PO BID PRN painful 04/22/21 procedure #14 tabs oxycodone-acetaminophen 5 mg-325 See Rx Instructions .Route 04/22/21 mg tablet (Percocet) .COMPLEX PRN painful procedure #14 tabs oxycodone-acetaminophen 5 mg-325 See Rx Instructions .Route 04/22/21 mg tablet (Percocet) .COMPLEX PRN painful procedure #14 tabs Allergies Allergy/AdvReac Type Severity Reaction Status Date / Time citalopram [From CELEXA] AdvReac Intermediate Rash Verified 05/22/24 13:50 Review of Systems Review of Systems ROS Unobtainable: All systems reviewed & are unremarkable except as noted in HPI and below Patient History Social History household members: significant other Smoking Status: Never smoker alcohol intake: current Smoking Status: Never smoker alcohol intake frequency: a few times a month Substance Use Type: does not use Exam Narrative Exam Narrative: GENERAL: Alert and oriented x three, female in no acute distress. HEENT: Head normocephalic, atraumatic, EOMI, pupils reactive, face symmetric, moist mucous membranes NECK: Supple, full range of motion CARDIOVASCULAR: Regular rate and rhythm without murmurs, rubs or gallops. No JVD. No edema bilateral lower extremities. RESPIRATORY: Breath sounds equal bilaterally, no wheezes rales or rhonchi. ABDOMEN: Soft, nontender. Normoactive bowel sounds all 4 quadrants. No guarding or rebound, rigidity, no mass : No CVA tenderness EXTREMITIES: Normal range of motion, no clubbing or edema. Neurovascularly intact NEUROLOGICAL: Cranial nerves II through XII grossly intact. Moving all extremities SKIN: Warm, dry, no petechiae, no rashes or lesions. Initial Vital Signs Initial Vital Signs: Vital Signs Temperature 98.5 F 05/22/24 13:50 Pulse Rate 75 05/22/24 13:50 Respiratory Rate 16 05/22/24 13:50 Blood Pressure 141/78 H 05/22/24 13:50 Pulse Oximetry 99 05/22/24 13:50 Oxygen Delivery Method Room Air 05/22/24 13:50 Course Orders Ordered: ED Orders 05/22/24 13:56 XR chest 1V Stat EKG-12 Lead Stat 05/22/24 14:08 Complete Blood Count AUTO DIFF Stat Comprehensive Metabolic Panel Stat Lipase Stat Magnesium Stat NT-proBNP (BNP-Adult 18+) Stat PTT Partial Thromboplastin [place] Stat Prothrombin Time INR Stat Troponin & CK Cardiac Panel Stat 05/22/24 15:05 Urine Microscopic Stat Vital Signs Vital signs: Vital Signs - 8 hr 05/22/24 13:50 05/22/24 14:00 05/22/24 14:18 Temperature 98.5 F Pulse Rate 75 66 72 Respiratory Rate 16 18 Blood Pressure 141/78 H Pulse Oximetry 99 100 100 Oxygen Delivery Method Room Air 05/22/24 14:18 05/22/24 14:30 05/22/24 14:30 Temperature Pulse Rate 59 L Respiratory Rate 18 Blood Pressure 119/71 106/67 Pulse Oximetry 100 Oxygen Delivery Method Room Air 05/22/24 15:00 05/22/24 15:00 05/22/24 15:30 Temperature Pulse Rate 62 61 Respiratory Rate 20 20 Blood Pressure 112/63 Pulse Oximetry 100 98 Oxygen Delivery Method 05/22/24 15:30 05/22/24 16:00 05/22/24 16:00 Temperature 98.2 F Pulse Rate 69 Respiratory Rate 20 Blood Pressure 107/59 L 113/69 Pulse Oximetry 99 Oxygen Delivery Method MDM - Syncope Lab Data 05/22/24 14:08 05/22/24 14:08 Labs: Lab Results 05/22/24 05/22/24 Range/Units 14:08 15:05 WBC 6.9 (4.5-11.0) X10^3/uL RBC 4.58 (4.0-5.2) X10^6/uL Hgb 14.2 (12.0-16.0) g/dL Hct 42.5 (36-46) % MCV 92.9 (80-100) fL MCH 31.0 (26-34) PG MCHC 33.4 (30-36) % RDW 12.7 (11.6-14.8) % Plt Count 199 (150-400) X10^3/uL Neut % (Auto) 72.7 (50-75) % Lymph % (Auto) 20.7 L (25-40) % [place] % (Auto) 5.2 (3-14) % Eos % (Auto) 0.3 L (2-4) % Baso % (Auto) 1.1 (0-2) % Neut # (Auto) 5000 (4599-6394) /uL Lymph # (Auto) 1400 (3443-9679) /uL [place] # (Auto) 400 (0-900) /uL Eos # (Auto) 0 (0-450) /uL Baso # (Auto) 100 (0-100) /uL PT 12.0 (9.4-12.5) SECONDS INR 1.1 (0.9-1.3) APTT 33 (25.1-36.5) SECONDS Sodium 138 (137-145) mmol/L Potassium 3.4 (3.4-5.1) mmol/L Chloride 106 (98-107) mmol/L Carbon Dioxide 22 (22-32) mmol/L BUN 9 (7-17) mg/dL Creatinine 0.74 (0.52-1.04) mg/dL Estimated GFR > 60 (>60) mL/min BUN/Creatinine Ratio 12.2 (6-22) Glucose 91 (70-100) mg/dL Calcium 9.0 (8.4-10.2) mg/dL Magnesium 1.8 (1.6-2.3) mg/dL Total Bilirubin 0.6 (0.2-1.3) mg/dL AST 22 (14-36) IU/L ALT 18 (<35) IU/L Alkaline Phosphatase 50 (38-126) U/L Total Creatine Kinase 50 (30-135) U/L Troponin I < 0.012 (0.01-0.034) ng/mL NT-Pro-B Natriuret Pep 216 H (<125) pg/mL Total Protein 7.8 (6.3-8.2) g/dL Albumin 4.8 (3.5-5.0) g/dL Globulin 3.0 (1.7-4.1) g/dL Albumin/Globulin Ratio 1.6 (1.0-2.8) Lipase 110 (23-300) U/L Urine RBC None seen (0-5/HPF) Urine WBC None seen (0-5/HPF) Ur Squamous Epith Cells None seen (0-5/HPF) Urine Bacteria None seen (None) Ur Culture Indicated? Cult not indicated Vol Urine Centrifuged 10ml (spun) Point of Care Testing Test Results Positive Urine Dip Bedside Urine Glucose Negative Bedside Urine Bilirubin - Negative Bedside Urine Ketone + 15 Urine Specific [place] 1.005 Bedside Urine Occult Blood - Negative Bedside Urine pH 6.0 Bedside Urine Protein - Negative Bedside Urine Urobilinogen - Negative Bedside Urine Nitrite - Negative Bedside Urine Leukocytes - Negative Esterase Imaging Data Chest x-ray: Radiologist's Impression: Chema Love??28??F??1995 ? Allergy/Adv: citalopram Close Chest X-Ray (Signed) Romero Snow - 05/22/24 Telemetry Strips 04/21/21 Abdomen/Pelvis CT (Signed) Ari Sal - 04/21/21 Launch?[address] [address] XRay Report Signed Patient: Chema Love MR#: [id number] : 1995 Acct:[id number] Age/Sex: 28 / F Date of Service: 05/22/24 Loc: ED Accession Number: [id number] Procedure: XR chest 1V Ordering Provider: Patria Haley D.O. PROCEDURE: XR CHEST 1V INDICATIONS: chest pain TECHNIQUE: One view of the chest was acquired. COMPARISON: None. FINDINGS: Surgical changes and devices: None. Lungs and pleura: Lungs are clear. No pleural effusions or pneumothorax. Mediastinum: Mediastinal contours appear normal. Heart size is normal. Bones and chest wall: No suspicious bony lesions. Overlying soft tissues appear unremarkable. IMPRESSION: No acute cardiopulmonary abnormality is seen. Dictated by: Romero Snow M.D. on 05/22/2024 at 14:24 Approved by: Romero Snow M.D. on 05/22/2024 at 14:24 ECG Data Attestation: I personally reviewed and interpreted this ECG as follows: Prior ECG tracings: not available for review Interpretation: Sinus rhythm rate of 67, MI 150 QRS 80 QTC of 464. Nonspecific change. MDM Narrative Medical decision making narrative: 28-year-old female who had a witnessed episode last night from their description sounds like a syncopal episode. Does describe some irregularity feeling of her heart for a couple of minutes afterwards. Patient has not had any changes to rhythm on telemetry here in the department. She was already set up follow up with primary care on June 07. Show white count of 6.9 hemoglobin of 14.2 platelets of 199, coags are negative. Electrolytes are normal BUN 9 creatinine 0.74 glucose is 91 Mag is 1.8, LFTs are otherwise negative troponins less than 0.012 with a BNP of 216. EKG shows sinus rhythm nonspecific change. Chest x-ray negative for acute change. Patient is well-appearing no additional episodes since no arrhythmias on telemetry, labs are overall appropriate EKG shows no specific change with a negative chest x-ray patient is not on any estrogen or other high-risk factors and felt appropriate for discharge home with follow up with primary care. Discussed may benefit from Holter or ZIO patch monitor. Discussed return precautions all questions answered. Discharge Plan Departure Patient Disposition: Home Clinical Impression: Syncope Instructions: DI for Syncope in Adults (Fainting) Activity Restrictions/Additional Instructions: Follow up for recheck with your physician on June 07. Let them know you had some irregular or palpitation type feelings right after this episode they may order Holter or ZIO patch depending on your evaluation with them. Please return for recurrent episodes of lightheadedness or passing out, new chest pain or shortness of breath, new swelling of extremities, palpitations, nausea vomiting or other new or concerning changes. Prescriptions: No Action oxycodone-acetaminophen [Percocet] 5-325 mg tablet See Rx Instructions .ROUTE .COMPLEX PRN (Reason: painful procedure) Qty: 14 0RF Rx Instructions: Take 1 or 2 pills every 6 hours if needed for pain. May constipate. naproxen [Naprosyn] 500 mg tablet 500 mg PO BID PRN (Reason: painful procedure) Qty: 14 0RF Rx Instructions: Take with food oxycodone-acetaminophen [Percocet] 5-325 mg tablet See Rx Instructions .ROUTE .COMPLEX PRN (Reason: painful procedure) Qty: 14 0RF Rx Instructions: Take 1 or 2 pills every 6 hours if needed for pain. May constipate. Referrals: Rosas Tejeda PA-C [Primary Care Provider] - Stand Alone Forms: Patient Portal/API/Survey
[2024-05-22 15:36] LABS: Bacteria Urine None Seen; RBC Urine None Seen (0-5/HPF); Squamous Epithelial Cell Urine None Seen (0-5/HPF); Urine Volume 10mL (spun); WBC Urine None Seen (0-5/HPF)
[2024-05-22 15:37] LABS: Culture Indicated Urine Cult Not Indicated
== END 2024-05-22 16:05 | disposition home or self-care (01) ==
PROVIDERS: Emergency Provider Emergency Medicine; PCP Physician Assistant
DX: R55 Syncope and collapse (principal); R07.9 Chest pain, unspecified; R06.02 Shortness of breath
CPT/HCPCS: 36415; 71045; 80053; 81003; 81015; 81025; 82550; 83690; 83735; 83880; 84484; 85025; 85610; 85730; 93005; 93010; 99284

== ENCOUNTER 2024-09-17 15:08 | Emergency (ER) | payer OTHER, MEDICAID, SELFPAY ==
[2021-04-21 10:17] VITALS: BMI 26.6
[2024-09-17] VITALS (8 sets, daily range): BP systolic 110–151; BP diastolic 59–91; PULSE 62–107; RESP 22; TEMP 36.1; O2SAT 94–100; BMI 27.1
[2024-09-17] MEDS: ONDANSETRON 4 MG/2 ML INJ IV (15:42)
--- NOTE | 2024-09-17 16:16 | ED_ITS ---
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 today, 4 hours ago. Patient just started a weight loss injection medication, provider in [place], had 2nd injection with the same dosing. Has had similar problems with another medication for weight loss as well. History of appendectomy. Related Data Previous Rx's Medication Instructions Recorded naproxen 500 mg tablet (Naprosyn) 500 mg PO BID PRN painful 04/22/21 procedure #14 tabs oxycodone-acetaminophen 5 mg-325 See Rx Instructions .Route 04/22/21 mg tablet (Percocet) .COMPLEX PRN painful procedure #14 tabs oxycodone-acetaminophen 5 mg-325 See Rx Instructions .Route 04/22/21 mg tablet (Percocet) .COMPLEX PRN painful procedure #14 tabs Allergies Allergy/AdvReac Type Severity Reaction Status Date / Time citalopram [From CELEXA] AdvReac Intermediate Rash Verified 05/22/24 13:50 Review of Systems Review of Systems Narrative: GENERAL: Negative chills, fatigue, malaise, fever, sweats. HEENT: Negative sinus pain, ear pain, sore throat RESPIRATORY: Negative dyspnea, cough CARDIOVASCULAR: Negative chest pain, palpitations GASTROINTESTINAL: Positive vomiting, nausea, abdominal pain : Negative dysuria, frequency, hematuria MUSCULOSKELETAL: Negative muscle or bony pain SKIN: Negative rash, skin lesions NEUROLOGIC: Negative weakness, numbness Patient History Social History household members: significant other Smoking Status: Never smoker alcohol intake: current Smoking Status: Never smoker alcohol intake frequency: a few times a month Exam Narrative Exam Narrative: GENERAL: in no distress, not toxic not dyspneic HEAD: Normocephalic. EYES: Pupils equal round ENT: Mucous membranes moist. NECK: Trachea midline. CARDIOVASCULAR: Regular rate and rhythm RESPIRATORY: Clear to auscultation. Breath sounds equal bilaterally. No wheezes, rales, or rhonchi. GASTROINTESTINAL: Abdomen soft, mild diffuse tenderness no peritoneal signs no guarding no rebound, bowel sounds are present EXTREMITIES: No gross deformities. BACK: No flank tenderness. NEURO: AOx4. Clear speech SKIN: Warm and dry PSYCH: Not anxious, is cooperative Initial Vital Signs Initial Vital Signs: Vital Signs Temperature 96.9 F L 09/17/24 15:11 Pulse Rate 62 09/17/24 15:11 Respiratory Rate 22 09/17/24 15:11 Blood Pressure 121/76 09/17/24 15:11 Pulse Oximetry 94 09/17/24 15:11 Oxygen Delivery Method Room Air 09/17/24 15:11 Course Orders Ordered: Discontinued Medications Sodium Chloride (Normal Saline 0.9%) 1,000 mls @ 1,000 mls/hr IV BOLUS ONE Stop: 09/17/24 17:14 Last Infusion: 09/17/24 17:48 Dose: Infused Documented By: Admin: 09/17/24 16:34 Dose: 1,000 mls/hr Documented By: BARBARA Sodium Chloride (Normal Saline 0.9%) 1,000 mls @ 1,000 mls/hr IV BOLUS ONE Stop: 09/17/24 18:27 Last Infusion: 09/17/24 18:58 Dose: Infused Documented By: Admin: 09/17/24 17:51 Dose: 1,000 mls/hr Documented By: BARBARA Morphine Sulfate (Morphine 4 Mg/Ml Inj) 4 mg IV NOW ONE Stop: 09/17/24 16:16 Last Admin: 09/17/24 16:34 Dose: 4 mg Documented By: BARBARA Ondansetron HCl (Ondansetron 4 Mg/2 Ml Inj) 4 mg IV NOW ONE Stop: 09/17/24 15:35 Last Admin: 09/17/24 15:42 Dose: 4 mg Documented By: BARBARA Ondansetron HCl (Ondansetron 4 Mg/2 Ml Inj) 4 mg IV NOW PRN PRN Reason: Nausea And Vomiting Ondansetron HCl (Ondansetron 4 Mg Odt) 4 mg SL NOW PRN PRN Reason: Nausea And Vomiting Prochlorperazine (Prochlorperazine 10 Mg/2 Ml Vial) 10 mg IV NOW ONE Stop: 09/17/24 16:16 Last Admin: 09/17/24 16:34 Dose: 10 mg Documented By: BARBARA Vital Signs Vital signs: Vital Signs - 8 hr 09/17/24 15:11 09/17/24 16:33 09/17/24 16:33 Temperature 96.9 F L Pulse Rate 62 79 Respiratory Rate 22 Blood Pressure 121/76 144/91 H Pulse Oximetry 94 98 Oxygen Delivery Method Room Air Room Air 09/17/24 16:34 09/17/24 17:00 09/17/24 17:00 Temperature Pulse Rate 77 72 Respiratory Rate Blood Pressure 144/91 H 151/73 H Pulse Oximetry 99 Oxygen Delivery Method 09/17/24 17:30 09/17/24 17:30 09/17/24 18:00 Temperature Pulse Rate 96 H 99 H Respiratory Rate Blood Pressure 110/59 L Pulse Oximetry 100 100 Oxygen Delivery Method MDM - Nausea/Vomiting/Diarrhea Lab Data 09/17/24 15:29 09/17/24 15:29 Labs: Lab Results 09/17/24 09/17/24 Range/Units 15:29 17:21 WBC 13.5 H (4.5-11.0) X10^3/uL RBC 4.78 (4.0-5.2) X10^6/uL Hgb 15.0 (12.0-16.0) g/dL Hct 44.0 (36-46) % MCV 92.0 (80-100) fL MCH 31.3 (26-34) PG MCHC 34.0 (30-36) % RDW 12.3 (11.6-14.8) % Plt Count 250 (150-400) X10^3/uL Neut % (Auto) 91.3 H (50-75) % Lymph % (Auto) 6.1 L (25-40) % [place] % (Auto) 2.1 L (3-14) % Eos % (Auto) 0.1 L (2-4) % Baso % (Auto) 0.4 (0-2) % Neut # (Auto) 57622 H (2345-9698) /uL Lymph # (Auto) 800 L (2539-7649) /uL [place] # (Auto) 300 (0-900) /uL Eos # (Auto) 0 (0-450) /uL Baso # (Auto) 100 (0-100) /uL Sodium 137 (137-145) mmol/L Potassium 3.9 (3.4-5.1) mmol/L Chloride 101 (98-107) mmol/L Carbon Dioxide 12 L (22-32) mmol/L BUN 14 (7-17) mg/dL Creatinine 0.77 (0.52-1.04) mg/dL Estimated GFR > 60 (>60) mL/min BUN/Creatinine Ratio 18.2 (6-22) Glucose 94 (70-100) mg/dL Calcium 9.5 (8.4-10.2) mg/dL Total Bilirubin 0.8 (0.2-1.3) mg/dL AST 26 (14-36) IU/L ALT 20 (<35) IU/L Alkaline Phosphatase 66 (38-126) U/L Total Protein 8.9 H (6.3-8.2) g/dL Albumin 5.3 H (3.5-5.0) g/dL Globulin 3.6 (1.7-4.1) g/dL Albumin/Globulin Ratio 1.5 (1.0-2.8) Lipase 152 (23-300) U/L Serum , Qual Negative (Negative) Urine Color Yellow Urine Appearance Clear Urine pH 6.0 (4.5-8.0) Ur Specific Winter >=1.030 H (1.000-1.035) Urine Protein Trace H (Negative) Urine Glucose (UA) Negative (Negative) g/dL Urine Ketones 3+ H (NEGATIVE) Urine Occult Blood Negative (Negative) Urine Nitrate Negative (Negative) Urine Bilirubin Negative (NEGATIVE) Urine Urobilinogen 0.2 (0.2) E.U./dL Ur Leukocyte Esterase Negative (NEGATIVE) Urine RBC None seen (0-5/HPF) Urine WBC None seen (0-5/HPF) Ur Squamous Epith Cells 0-1 /hpf (0-5/HPF) Amorphous Sediment 1+ Urine Bacteria None seen (None) Ur Culture Indicated? Cult not indicated Vol Urine Centrifuged 10ml (spun) Point of Care Testing Test Results Negative Urine Dip Bedside Urine Glucose Negative Bedside Urine Bilirubin - Negative Bedside Urine Ketone +++ 80 Urine Specific Winter 1.030 Bedside Urine Occult Blood - Negative Bedside Urine pH 6.0 Bedside Urine Protein + 30 Bedside Urine Urobilinogen - Negative Bedside Urine Nitrite - Negative Bedside Urine Leukocytes - Negative Esterase Imaging Data CT scan - abdomen/pelvis: Radiologist's Impression: [address] [address] [address] Scan Report Signed Patient: Chema Love MR#: [id number] : 1995 Acct:[id number] Age/Sex: 28 / F Date of Service: 09/17/24 Loc: ED Accession Number: [id number] Procedure: CT abdomen pelvis w con Ordering Provider: Gavino Shipman MD PROCEDURE: CT ABDOMEN PELVIS W CON INDICATIONS: abdominal pain TECHNIQUE: After the administration of intravenous contrast, axial sections acquired from the lung bases to the pubic symphysis. Coronal and sagittal reformats were performed. For radiation dose reduction, the following was used: automated exposure control, adjustment of mA and/or kV according to patient size. COMPARISON: [facility], CT, CT ABDOMEN PELVIS W CON, 04/21/2021, 5:18. FINDINGS: Image quality: Diagnostic. Lower Chest: No significant findings. ABDOMEN: Liver: No solid mass. Gallbladder: No radiopaque gallstones or wall thickening. Biliary ducts: No biliary dilation. Pancreas: No ductal dilation. Spleen: Size is within normal limits. Adrenal Glands: No adrenal nodules. Kidneys and Ureters: No hydronephrosis. No solid mass. No complex renal cystic lesion which requires follow up. Stomach and Bowel: Slight appearance of thickening within the right colon. Appendix is not visualized. Peritoneum: No abnormal intraperitoneal fluid. No free air. Ventral Wall: No significant ventral hernia. Abdominal Nodes: No retroperitoneal or mesenteric adenopathy by size criteria. Vessels: Aorta and inferior vena cava are normal in size. PELVIS: Pelvic Organs: Unremarkable. Bladder: No bladder wall thickening, accounting for underdistention. Pelvic Nodes: No enlarged lymph nodes. Miscellaneous: No inguinal hernias are seen. Bones: No aggressive osseous abnormality. IMPRESSION: Slight appearance of thickening within the right colon. While this could be secondary to incomplete distention, very early colitis cannot be definitively excluded. Dictated by: Lexi Almodovar M.D. on 09/17/2024 at 18:28 Approved by: Lexi Almodovar M.D. 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 today, 4 hours ago. Patient just started a weight loss injection medication, provider in [place], had 2nd injection with the same dosing. Has had similar problems with another medication for weight loss as well. History of appendectomy. After history and exam, CBC CMP lipase test morphine Zofran Compazine normal saline MDM Medical records reviewed: No recent visit for this complaint Differential considered: Includes but not limited to medication reaction bowel obstruction viral syndrome Lab Test results independently reviewed as above. Pertinent findings: Imaging studies independently reviewed: CT abdomen pelvis no acute finding Consultations: None indicated at this time Treatments: Morphine Zofran Compazine normal saline Re-evaluations: 6:50 p.m.. Patient feeling much better smiling lying back now. Reviewed results with patient and motorcoach driver. Symptoms likely due to new medication and she will stop this medication and follow up with her primary care. Return precautions reviewed she desires discharge home. Discussion: Appropriate for discharge home. Return precautions reviewed with patient and partner. She is feeling much better now. She desires discharge home. She will not continue the new medication. Diagnosis: Medication reaction Discharge Plan Departure Patient Disposition: Home Clinical Impression: Medication reaction Qualifiers: Encounter type: initial encounter Qualified Code(s): T50.905A - Adverse effect of unspecified drugs, medicaments and biological substances, initial encounter Instructions: DI for Vomiting -- Adult Activity Restrictions/Additional Instructions: Please discontinue your new medication. This likely caused your symptoms today. See your family doctor regarding this medication. Return if worse if any questions or concerns. No driving operating machinery tonight. Your laboratory studies and imaging studies are otherwise reassuring. Prescriptions: No Action oxycodone-acetaminophen [Percocet] 5-325 mg tablet See Rx Instructions .ROUTE .COMPLEX PRN (Reason: painful procedure) Qty: 14 0RF Rx Instructions: Take 1 or 2 pills every 6 hours if needed for pain. May constipate. naproxen [Naprosyn] 500 mg tablet 500 mg PO BID PRN (Reason: painful procedure) Qty: 14 0RF Rx Instructions: Take with food oxycodone-acetaminophen [Percocet] 5-325 mg tablet See Rx Instructions .ROUTE .COMPLEX PRN (Reason: painful procedure) Qty: 14 0RF Rx Instructions: Take 1 or 2 pills every 6 hours if needed for pain. May constipate. Referrals: Rosas Tejeda PA-C [Primary Care Provider] - Stand Alone Forms: Patient Portal/API/Survey
[2024-09-17 16:26] LABS: Add Manual Diff / Slide Review NO; Basophils Absolute Auto 100 /uL (0-100); Basophils Percent Auto 0.4 % (0-2); Eosinophils Absolute Auto 0 /uL (0-450); Eosinophils Percent Auto 0.1 % (2-4); Lymphocytes Absolute Auto 800 /uL (1100-4500); Lymphocytes Percent Auto 6.1 % (25-40); Mean Corpuscular Hemoglobin 31.3 PG (26-34); Monocytes Absolute Auto 300 /uL (0-900); Monocytes Percent Auto 2.1 % (3-14); Neutrophils Absolute Auto 12300 /uL (1500-7000); Neutrophils Percent Auto 91.3 % (50-75); Platelet Count 250 X10^3/uL (150-400); Red Blood Cell Count 4.78 X10^6/uL (4.0-5.2); Red Cell Distribution Width 12.3 % (11.6-14.8); White Blood Cell Count 13.5 X10^3/uL (4.5-11.0)
[2024-09-17] MEDS: PROCHLORPERAZINE 10 MG/2 ML VIAL IV (16:34)
[2024-09-17] MEDS: SODIUM CHLORIDE 0.9% 1,000 ML 1000 ML IV ×2 (16:34→17:51)
[2024-09-17] MEDS: MORPHINE 4 MG/ML INJ IV (16:34)
[2024-09-17 16:42] LABS: Alanine Aminotransferase 20 IU/L (<35); Albumin 5.3 g/dL (3.5-5.0); Albumin Globulin Ratio 1.5 (1.0-2.8); Alkaline Phosphatase 66 U/L (38-126); Aspartate Aminotransferase 26 IU/L (14-36); BUN Creatinine Ratio 18.2 (6-22); Bilirubin Total 0.8 mg/dL (0.2-1.3); Blood Urea Nitrogen 14 mg/dL (7-17); Calcium 9.5 mg/dL (8.4-10.2); Carbon Dioxide 12 mmol/L (22-32); Chloride 101 mmol/L (98-107); Estimated Glomerular Filt Rate > 60 mL/min (>60); Globulin 3.6 g/dL (1.7-4.1); Glucose 94 mg/dL (70-100); HEMOLYSIS < 15 (0-50); Lipase 152 U/L (23-300); Potassium 3.9 mmol/L (3.4-5.1); Sodium 137 mmol/L (137-145); Total Protein 8.9 g/dL (6.3-8.2)
[2024-09-17 16:52] LABS: Pregnancy Test Serum,Qual Negative (Negative)
--- NOTE | 2024-09-17 17:28 | DI.CT.S_ITS ---
PROCEDURE: CT ABDOMEN PELVIS W CON INDICATIONS: abdominal pain TECHNIQUE: After the administration of intravenous contrast, axial sections acquired from the lung bases to the pubic symphysis. Coronal and sagittal reformats were performed. For radiation dose reduction, the following was used: automated exposure control, adjustment of mA and/or kV according to patient size. COMPARISON: [facility], CT, CT ABDOMEN PELVIS W CON, 04/21/2021, 5:18. FINDINGS: Image quality: Diagnostic. Lower Chest: No significant findings. ABDOMEN: Liver: No solid mass. Gallbladder: No radiopaque gallstones or wall thickening. Biliary ducts: No biliary dilation. Pancreas: No ductal dilation. Spleen: Size is within normal limits. Adrenal Glands: No adrenal nodules. Kidneys and Ureters: No hydronephrosis. No solid mass. No complex renal cystic lesion which requires follow up. Stomach and Bowel: Slight appearance of thickening within the right colon. Appendix is not visualized. Peritoneum: No abnormal intraperitoneal fluid. No free air. Ventral Wall: No significant ventral hernia. Abdominal Nodes: No retroperitoneal or mesenteric adenopathy by size criteria. Vessels: Aorta and inferior vena cava are normal in size. PELVIS: Pelvic Organs: Unremarkable. Bladder: No bladder wall thickening, accounting for underdistention. Pelvic Nodes: No enlarged lymph nodes. Miscellaneous: No inguinal hernias are seen. Bones: No aggressive osseous abnormality. IMPRESSION: Slight appearance of thickening within the right colon. While this could be secondary to incomplete distention, very early colitis cannot be definitively excluded. Dictated by: Lexi Almodovar M.D. on 09/17/2024 at 18:28 Approved by: Lexi Almodovar M.D. on 09/17/2024 at 18:30
[2024-09-17 17:38] LABS: Appearance Urine UA CLEAR; Bilirubin Urine UA NEGATIVE (NEGATIVE); Color Urine UA YELLOW; Glucose Urine UA NEGATIVE (Negative); Ketones Urine UA 3+ (NEGATIVE); Leukocyte Esterase Urine UA NEGATIVE (NEGATIVE); Nitrite Urine UA NEGATIVE (Negative); Occult Blood Urine UA NEGATIVE (Negative); Protein Urine UA TRACE (Negative); Specific Gravity Urine UA >=1.030 (1.000-1.035); Urobilinogen Urine UA 0.2 E.U./dL (0.2)
[2024-09-17 17:44] LABS: Amorphous Sediment Urine 1+; Bacteria Urine None Seen; Culture Indicated Urine Cult Not Indicated; RBC Urine None Seen (0-5/HPF); Squamous Epithelial Cell Urine 0-1 /HPF (0-5/HPF); Urine Volume 10mL (spun); WBC Urine None Seen (0-5/HPF)
== END 2024-09-17 19:08 | disposition home or self-care (01) ==
PROVIDERS: Emergency Provider Emergency Medicine; PCP Physician Assistant
DX: R10.9 Unspecified abdominal pain (principal); R11.2 Nausea with vomiting, unspecified; T50.905A Adverse effect of unspecified drugs, medicaments and biological substances, initial encounter
CPT/HCPCS: 74177; 80053; 81001; 81003; 81025; 83690; 84703; 85025; 96361; 96374; 96375; 99283; 99284; J0780; J2270; J2405; Q9967